=== PATIENT | female | born 1975 | race Caucasian/White ===

== ENCOUNTER 2017-01-12 07:46 | Day surgery (SDC) | payer OTHER ==
[~2017-01-12 07:46] MED LIST: Buffered Lidocaine 1% SYR 3ML* 3 ML/SYR SYRINGE INTRADERM ONE
[2017-01-12] MEDS ORDERED: ceFAZolin 2 GM PREMIX (*) 2 GM/50 ML BAG IVPB ONE (07:59)
[2017-01-12] MEDS ORDERED: Bupivacaine 0.5% SDV PF* 30 ML VIAL ONE (09:14)
[2017-01-12] MEDS ORDERED: Lidocaine 1% INJ* 10 MG/ML 30 ML SDV ONE (09:14)
[2017-01-12] MEDS ORDERED: Midazolam* 1 MG/ML 2 ML VIAL (2 MG) ONE (09:23)
[2017-01-12] MEDS ORDERED: fentaNYL* 50 MCG/ML 2 ML VIAL (100 MCG VIAL) ONE (09:23)
[2017-01-12] MEDS ORDERED: Dexamethasone IV* 4 MG/ML 1 ML (4 MG) ONE (09:44)
[2017-01-12 10:21] VITALS: BP 102/54
--- NOTE | 2017-01-12 12:55 | OP ---
DATE OF OPERATION: 01/12/17 - [facility] DATE OF : 77 SURGEON: Avni Petersen DPM REPLENISHMENT ASSOCIATE: None. ANESTHESIOLOGIST: Pranav Kaba MD ANESTHESIA: MAC with local. PRE-OP DIAGNOSIS: Painful screw fixation, first metatarsal right foot. POST-OP DIAGNOSIS: Painful screw fixation, first metatarsal right foot. OPERATIVE PROCEDURE: Removal of screw from first metatarsal right foot. PATHOLOGY: Removed screw. HEMOSTASIS: Pneumatic ankle tourniquet. INDICATIONS: The patient with previous osteotomy which has completely healed. She has had some continued and recent pain at the dorsal aspect correlating with the head of the screw and she opts for removal of the screw at this time. DESCRIPTION OF PROCEDURE: The patient was brought to the operating room and placed on the operating room table in a supine position. The anesthesia department administered IV sedation and a peripheral nerve block was performed of the right foot with a 1:1 mixture of 1% lidocaine plain and 0.5% Marcaine plain. The right foot was prepped and dapped in the usual fashion. The right foot was then exsanguinated with an Esmarch bandage and a pneumatic ankle tourniquet was inflated to 250 mmHg well-padded at the right ankle. Attention was directed to the dorsal aspect of the right great toe joint where using the fluoroscopy, the screw head was previously marked. Small linear incision was made deeper to the subcutaneous tissues with care being taken to retract the neurovascular structures and cauterize superficial bleeders as needed. A linear incision was made in the deep fascia, exposing the screw head which was freed from surrounding soft tissue attachments. Using a hand-held screwdriver, the screw was retrograded out of the first metatarsal and inspected and found to be completely intact without any signs of breakage or shearing. The metatarsal was inspected without any evidence of any significant hypertrophy or spurring. The surgical site was flushed with copious amounts of normal sterile saline. Deep fascia was reapproximated with 4-0 Polysorb, subcutaneous tissues were reapproximated with 4-0 Polysorb, and skin was reapproximated with 5-0 nylon. 8 mg of dexamethasone phosphate was infiltrated at the surgical site, and the surgical site was dressed with Xeroform gauze, 4 x 4 gauze, Jared, and light Coban wrap. The pneumatic ankle tourniquet was deflated about the right ankle and a prompt hyperemic response was noted about all 5 digits of the patient's right foot. Having appeared to have tolerated the procedures and anesthesia well, the patient was transported via cart from the operating room to recovery in satisfactory condition with cap refill less than 3 seconds to all digits of the right foot. [id number]/[facility] #: [id number] MTDD
== END 2017-01-12 10:25 | disposition home or self-care (01) ==
LOC: OREAST 07:46
PROVIDERS: ATTEND Podiatrist Foot Surgery
DX: T84.84XA Pain due to internal orthopedic prosthetic devices, implants and grafts, initial encounter (principal); Y79.3 Surgical instruments, materials and orthopedic devices (including sutures) associated with adverse incidents; Y92.9 Unspecified place or not applicable; Z79.1 Long term (current) use of non-steroidal anti-inflammatories (NSAID); K21.9 Gastro-esophageal reflux disease without esophagitis; F17.200 Nicotine dependence, unspecified, uncomplicated; J45.909 Unspecified asthma, uncomplicated; M17.0 Bilateral primary osteoarthritis of knee; M16.0 Bilateral primary osteoarthritis of hip
CPT/HCPCS: 88300; J0690; J1100; J2250; J3010

== ENCOUNTER 2018-03-27 13:39 | Emergency (ER) | payer OTHER ==
[2018-03-27] MEDS ORDERED: Ibuprofen TAB* 800 MG PO ONE (15:46)
--- NOTE | 2018-03-27 15:57 | ED ---
Upper Extremity Pain - HPI Summary HPI Summary: Right hand dominant patient presents with right sided upper extremity pain and swelling over the past 9 days. Utilizes her upper extremities to sweep, mop, vacuum, etc. Her pain is worse with reaching overhead and is felt in the posterior shoulder and tricep region - pain radiates along Rt neck at times and may be causing headaches. She denies numbness tingling or weakness in her hand although pain in her shoulder can be worse with gripping. No skin changes or rash. She cannot apply ice to this area as she is allergic to the cold ( develops hives). She has not tried anything in regards to pain medication for relief. When this initially started, her PCP ordered an ultrasound to rule out a clot. Per patient this was negative. History of arthritis in hips, knees, back. - History of Current Complaint Chief Complaint: EDExtremityUpper Stated Complaint: RT ARM SWELLING Time Seen by Provider: 03/27/18 14:14 Hx Obtained From: Patient, Family/Floor Inspector - Hx Last Menstrual Period: 1 WEEK AGO - Allergies/Home Medications Allergies/Adverse Reactions: Allergies Allergy/AdvReac Type Severity Reaction Status Date / Time No Known Allergies Allergy Verified 03/27/18 14:32 Home Medications: Home Medications Omeprazole CAP* [Prilosec CAP* 20 MG] 40 mg PO QAM 03/27/18 [History Confirmed 03/27/18] PMH/Surg Hx/FS Hx/Imm Hx Previously Healthy: Yes Endocrine/Hematology History: Denies: Hx Anticoagulant Therapy, Hx Blood Disorders, Hx Diabetes, Hx Thyroid Disease, Hx Unexplained Bleeding, Hx Coagulopothy Cardiovascular History: Denies: Hx Congestive Heart Failure, Hx Deep Vein Thrombosis, Hx Hypertension , Hx Myocardial Infarction, Hx Pacemaker/ICD Respiratory History: Reports: Hx Asthma - triggered by bronchitis, no med Denies: Hx Chronic Obstructive Pulmonary Disease (COPD), Hx Lung Cancer GI History: Reports: Hx Ulcer, Other GI Disorders - INDIGESTION CONTROL WITH MEDS Denies: Hx Gall Bladder Disease, Hx Gastrointestinal Bleed, Hx Urosepsis History: Denies: Hx Kidney Stones, Hx Renal Disease Musculoskeletal History: Reports: Hx Arthritis - RIGHT HIP, RIGHT KNEE, BACK, Other Musculoskeletal History - right foot bone spur, current hardware Denies: Hx Scoliosis Sensory History: Reports: Hx Cataracts - right eye, no surgery yet, Hx Contacts or Glasses - CONTACT LENS LEFT EYE, GLASSES AVAILABLE Denies: Hx Hearing Aid Opthamlomology History: Reports: Hx Cataracts - right eye, no surgery yet, Hx Contacts or Glasses - CONTACT LENS LEFT EYE, GLASSES AVAILABLE Neurological History: Denies: Hx Dementia, Hx Headaches, Hx Migraine, Hx Seizures, Hx Transient Ischemic Attacks (TIA) Psychiatric History: Denies: Hx Anxiety, Hx Depression, Hx Schizophrenia, Hx Bipolar Disorder - Surgical History Surgery Procedure, Year, and Place[place] [facility] [place] spur , 2016 - [facility] [place] Hx Anesthesia Reactions: No Infectious Disease History: No Infectious Disease History: Denies: Hx Hepatitis, Hx Human Immunodeficiency Virus (HIV), History Other Infectious Disease, Traveled Outside the [place] in Last 30 Days - Family History Known Family History: Positive: Diabetes - grandmother Negative: Cardiac Disease, Hypertension - Social History Occupation: Employed Full-time Lives: With Family Alcohol Use: Rare Hx Substance Use: No Substance Use Type: Reports: None Hx Tobacco Use: Yes Smoking Status (MU): Light Every Day Tobacco Smoker Type: Cigarettes Amount Used/How Often: 1/2 ppd Length of Time of Smoking/Using Tobacco: 23 YEARS Have You Smoked in the Last Year: Yes Review of Systems Constitutional: Negative Negative: Fever, Chills, Fatigue Eyes: Negative Negative: Photophobia, Blurred Vision, Diplopia, Drainage, Erythema ENT: Negative Cardiovascular: Negative Respiratory: Negative Gastrointestinal: Negative Positive: no symptoms reported Positive: Arthralgia, Myalgia, Decreased ROM Skin: Negative Positive: Headache. Negative: Weakness, Paresthesia, Numbness, Syncope, Slurred Speech Psychological: Normal All Other Systems Reviewed And Are Negative: Yes Physical Exam Triage Information Reviewed: Yes Vital Signs On Initial Exam: Initial Vitals Temp Pulse Resp BP Pulse Ox 98.2 F 84 16 124/76 98 03/27/18 14:01 03/27/18 14:01 03/27/18 14:01 03/27/18 14:01 03/27/18 14:01 Vital Signs Reviewed: Yes Appearance: Positive: Well-Appearing, No Pain Distress, Well-Nourished Skin: Positive: Warm, Skin Color Reflects Adequate Perfusion, Dry - no erythema , no ecchymosis, no lesions over effected area Head/Face: Positive: Normal Head/Face Inspection Eyes: Positive: Normal, EOMI ENT: Positive: Normal ENT inspection, Hearing grossly normal Neck: Positive: Supple, Tenderness @ - Rt paracervical mm w/ mild TTP Respiratory/Lung Sounds: Positive: Clear to Auscultation, Breath Sounds Present Cardiovascular: Positive: Normal, RRR, Pulses are Symmetrical in both Upper and Lower Extremities, Other - no UE edema Musculoskeletal: Positive: Limited @ - Rt shoulder flexion is limited at end of range d/t tricep pain -pain w/ abduction as well but she is able to do so, Pain @ - suprapsinatus, infraspinatus, and teres mm are all TTP Neurological: Positive: Normal, Sensory/Motor Intact, Alert, Oriented to Person Place, Time, CN Intact II-III Psychiatric: Positive: Anxious Diagnostics - Vital Signs Vital Signs Temp Pulse Resp BP Pulse Ox 03/27/18 14:01 98.2 F 84 16 124/76 98 - Laboratory Lab Statement: Any lab studies that have been ordered have been reviewed, and results considered in the medical decision making process. Course/Dx - Course Course Of Treatment: XR: AC joint arthritis. Suspect this may be exacerbated by recent overuse injury, may be involving tendon. RICE and f/u w/ PCP - may benefit from PT and/or ketoralac if no pain improvement. - Diagnoses Provider Diagnoses: Right shoulder tendonitis, Arthritis of shoulder region, right Discharge - Sign-Out/Discharge Documenting (check all that apply): Discharge/Admit/Transfer - Discharge Plan Condition: Stable Disposition: HOME Patient Education Materials: Osteoarthritis (ED), Tendinitis (ED) Forms: *Work Release Referrals: No Primary Care Phys,NOPCP [Primary Care Provider] - [facility] [Outside] Additional Instructions: Rest in sling but remove to stretch and move arm throughout the day to prevent adhesive capsulitis (aka "frozen shoulder"). Continue ibuprofen 600 mg every 6 hours with food as needed for pain and swelling. Follow up with PCP this week - call tomorrow to schedule an appointment. If he do not have a PCP, a contact number has been provided for you. *If he developed numbness, weakness, extreme swelling or coldness of extremity, return to the emergency department. - Billing Disposition and Condition Condition: STABLE Disposition: Home
--- NOTE | 2018-03-27 16:19 | RAD ---
Indication: Right shoulder pain. 4 views of the right shoulder demonstrates no fracture. AC joint arthritis is noted. No pneumothorax is noted. IMPRESSION: AC joint arthritis. No fracture of the right shoulder is noted.
[2018-03-27 16:49] VITALS: BP 122/73
== END 2018-03-27 16:48 | disposition home or self-care (01) ==
LOC: ED 13:39
DX: M75.91 Shoulder lesion, unspecified, right shoulder (principal); M19.011 Primary osteoarthritis, right shoulder; R51 Headache; J45.909 Unspecified asthma, uncomplicated; M16.11 Unilateral primary osteoarthritis, right hip; M17.11 Unilateral primary osteoarthritis, right knee; M47.819 Spondylosis without myelopathy or radiculopathy, site unspecified; Z83.3 Family history of diabetes mellitus; F17.210 Nicotine dependence, cigarettes, uncomplicated
CPT/HCPCS: 99282; A9270-GY

== ENCOUNTER 2019-03-04 10:12 | Day surgery (SDC) | payer OTHER ==
[~2019-03-04 10:12] MED LIST changes: -Buffered Lidocaine 1% SYR 3ML* 3 ML/SYR SYRINGE INTRADERM ONE; +Buffered Lidocaine 1% SYRIN* 1 ML/SYRINGE INTRADERM ONE; +Dexamethasone IV* 4 MG/ML 1 ML (4 MG) IV SLOW PU ONE; +Famotidine IV* 10 MG/ML 2 ML (20 mg) IV ONE; +Lactated Ringers 1000 ML Bag* 1,000 ML IV SCH
[2019-03-04] MEDS ORDERED: ceFAZolin 2 GM PREMIX in ORs 2 GM/50 ML BAG IVPB ONE (10:51)
[2019-03-04] MEDS ORDERED: Dexamethasone IV* 4 MG/ML 1 ML (4 MG) ONE (10:51)
[2019-03-04] MEDS ORDERED: Famotidine IV* 10 MG/ML 2 ML (20 mg) ONE (10:51)
[2019-03-04] MEDS ORDERED: Buffered Lidocaine 1% SYRIN* 1 ML/SYRINGE INTRADERM ONE (11:12)
[2019-03-04] MEDS ORDERED: Bupivacaine 0.25% SDV* 30 ML ONE (11:43)
[2019-03-04] MEDS ORDERED: ROPIVACAINE 5 MG/ML 30 ML BTL (0.5%) ONE ×2 (11:50→12:23)
[2019-03-04] MEDS ORDERED: fentaNYL* 50 MCG/ML 5 ML VIAL (250 MCG VIAL) ONE (12:18)
[2019-03-04] MEDS ORDERED: fentaNYL* 50 MCG/ML 2 ML VIAL (100 MCG VIAL) ONE ×2 (12:19→13:36)
[2019-03-04] MEDS ORDERED: Midazolam* 1 MG/ML 5 ML VIAL (5 MG) ONE (12:19)
[2019-03-04] MEDS ORDERED: Succinylcholine* 20 MG/ML 10 ML VIAL ONE (12:51)
[2019-03-04] MEDS ORDERED: Lidocaine 2% PF * 5 ML VIAL ONE (12:51)
[2019-03-04] MEDS ORDERED: Propofol* 10 MG/ML 20 ML BTL ONE (12:51)
[2019-03-04] MEDS ORDERED: Ketorolac INJ* 30 MG/ML 1 ML VIAL ONE (12:51)
[2019-03-04] MEDS ORDERED: Ondansetron INJ* 2 MG/ML VIAL ONE (12:51)
[2019-03-04] MEDS ORDERED: HYDROmorphone INJ1* 1 MG/ML SYRINGE IV PRN (13:04)
[2019-03-04] MEDS ORDERED: Scopolamine 1.5 mg* PATCH TRANSDERM PRN (13:04)
[2019-03-04] MEDS ORDERED: DiMENhydriNATE IV* 50 MG/ML VIAL IV PUSH PRN (13:04)
[2019-03-04] MEDS ORDERED: Ondansetron INJ* 2 MG/ML VIAL IV PRN (13:04)
[2019-03-04] MEDS ORDERED: Naloxone* 0.4 MG/ML 1 ML VIAL IV PRN (13:04)
[2019-03-04] MEDS ORDERED: fentaNYL* 50 MCG/ML 2 ML VIAL (100 MCG VIAL) IV PRN (13:04)
[2019-03-04] MEDS ORDERED: oxyCODONE/Acetamin 5/325 MG* TAB PO PRN (13:04)
[2019-03-04] MEDS ORDERED: oxyCODONE/Acetamin 5/325 MG* TAB ONE (14:08)
[2019-03-04 14:12] VITALS: BP 103/66
--- NOTE | 2019-03-05 | OP ---
CC: PCP * DATE OF OPERATION: 03/04/19 - [facility] DATE OF : 77 SURGEON: Fracisco Ovalle MD PLANISHING HAMMER OPERATOR: DEONTE Pool. An personalized living assistant was needed for the entirety of the case to help with positioning, retraction, and was utilized throughout all portions of the case. ANESTHESIOLOGIST: Dr. Nicole. ANESTHESIA: General. PRE-OP DIAGNOSIS: Right shoulder acromioclavicular joint arthritis. POST-OP DIAGNOSIS: Right shoulder acromioclavicular joint arthritis. OPERATIVE PROCEDURE: Right shoulder open distal clavicle excision. INDICATIONS: Jamaica Villatoro is a 43-year-old female who has had persistent shoulder pain for some time. I have given her injections. She has failed conservative management and elected to proceed with surgical treatment. Risks and benefits were discussed at length included, but are not limited to, bleeding ; infection; damage to nerves, vessels, surrounding structures; wound nonhealing ; persistent pain; need for further surgery; scarring; stiffness; incomplete relief of symptoms, risks of anesthesia. COMPLICATIONS: None. ESTIMATED BLOOD LOSS: Minimal. DESCRIPTION OF PROCEDURE: The patient was greeted in the preoperative area by the attending surgeon. The correct extremity was marked and consent was confirmed. The patient was brought back to the operating suite, where she was placed in supine position on the operating table. She underwent general anesthesia and LMA intubation after which she was appropriately positioned in the lazy beach chair position. The right shoulder was then prepped and draped in the usual sterile fashion beginning with chlorhexidine soap, scrub, and alcohol wipe, and a final prep with ChloraPrep. After appropriate surgical pause indicating side, site, procedure, and administration of antibiotics, a 15 blade was used to make an incision along the AC joint. The soft tissues were dissected and taken down to the capsule, AC joint, which was identified and incised longitudinally. Flaps were taken and preserved for later closure. The distal aspects of the clavicle were then skeletonized and developed. AC joint was identified. 1 cm of the distal clavicle was then measured using a ruler and then a sagittal saw was then used to cut the distal centimeter of the distal clavicle. All the soft tissue attachments were removed. Care was taken to preserve the CC ligaments. Once this was completed, the wounds were copiously irrigated with sterile saline. The capsule was closed with 0 Vicryl in an interrupted fashion for a water- tight closure. The skin was closed in layers with 3-0 Monocryl and then 3-0 nylon in a running fashion. Sterile dressings were applied. A Cryo/Cuff and a regular sling were applied. She was awoken from anesthesia and transferred to the PACU in stable condition. POSTOPERATIVE PLAN: She will be nonweightbearing. She will have range of motion as tolerated. I will see the patient back in 10 to 14 days. DVT prophylaxis was considered, but deferred due to no previous personal or family history. [id number]/[facility] #: [id number] MTDD
== END 2019-03-04 14:35 | disposition home or self-care (01) ==
LOC: OREAST 10:12
PROVIDERS: ATTEND Orthopaedic Surgery
DX: M19.211 Secondary osteoarthritis, right shoulder (principal); Z72.0 Tobacco use; J45.909 Unspecified asthma, uncomplicated; K21.9 Gastro-esophageal reflux disease without esophagitis; M19.90 Unspecified osteoarthritis, unspecified site
CPT/HCPCS: 81025; 88304; 88311; A9270-GY; J0330; J0690; J1100; J1885; J2250; J2405; J2704; J2795; J3010; J3490